=== PATIENT | male | born 1980 | race Caucasian/White ===

== ENCOUNTER 2022-12-31 10:02 | Outpatient (AMB) | payer OTHER, SELFPAY ==
--- NOTE | 2022-12-31 12:36 | AM.OFFWIN_ITS ---
Intake Vital Signs 12/31/22 12:45 12/31/22 13:42 12/31/22 13:42 12/31/22 13:42 Height 5 ft 4 in Weight 179 lb 6 oz BMI 30.8 BP 120/82 100/62 120/70 118/86 Blood Pressure Location Lt brachial Rt brachial Rt brachial Rt brachial Position Sitting Supine Sitting Standing Pulse 83 Pulse Source Pulse Oximeter Temp 98.5 F Temp Source Oral Pulse Oximetry (%) 97 Oxygen Delivery Method Room Air Intake Visit Reasons: EP ?Sinus Infection [phone] Intake Note: pt has been dizzy off and on for months but has had head pressure and pain and left ear pain for the last 3 days Patient Tobacco Use Status: Never used Tobacco Allergies escitalopram Adverse Reaction (Unknown, Verified 12/31/22 12:38) stomach upset milk Adverse Reaction (Unknown, Uncoded 12/31/22 12:38) stomach upset Medication List - Last Reconciled 12/31/22 by APPLE Villafana lactase (Lactaid Fast Act) 9,000 units PO QID PRN Do you need a note to return to daycare/school/sports/work: No HPI EP ?Sinus Infection [phone] HPI Details Patient is a 42-year-old male in for sick visit. Patient has a past medical history is significant for benign proximal positional vertigo. Patient reports that over the past year he has had bouts of dizziness which can last up to 3 days, denies nausea or vomiting. Patient has not tried any medications for relief, he lets the dizziness resolve on its own. Patient states that he notices dizzy spells most after changing positions and standing up. Will obtain EKG, will obtain orthostatic blood pressure, will perform David-Hallpike maneuver, and will draw labs CBC and basic metabolic panel. [facility] Social History Patient Tobacco Use Status: Never used Tobacco Review of Systems Const Reports headache(s) ENT Reports dizziness and Reports headache(s) Neuro Reports dizziness and Reports headache(s) Physical Exam Vital Signs: Last Vital Signs Temp 98.5 F 12/31/22 12:45 Pulse 83 12/31/22 12:45 BP 118/86 12/31/22 13:42 Pulse Ox 97 12/31/22 12:45 Oxygen Delivery Method Room Air 12/31/22 12:45 BMI result Body Mass Index 30.8 Const General: cooperative and no acute distress Orientation/consciousness: patient oriented x3 Limitations: no limitations HEENT Head: Yes normal to inspection and Yes normocephalic Ears: hearing grossly normal bilaterally and other (Fluid in redness visible and right ear canal) Face and sinus: Yes sinuses nontender Mouth: Normal oral and palatal mucosa present Throat: Yes posterior oropharynx normal and Yes tonsils normal Eyes General: appearance normal, both eyes and all related structures Neck Neck: Yes no lymphadenopathy Resp Effort & Inspection: normal respiratory effort Auscultation: clear to auscultation bilaterally Neuro Other: Patient is negative for in office orthostatic hypotension. General: patient oriented x3 and CN's II-XI intact bilaterally Cranial nerves: Yes CN's II-XII intact bilaterally Office Procedures EKG Details: Normal sinus rhythm 68 beats per minute 52021-[id number], Complete Assessment & Plan Assessment & Plan (1) BPPV (benign paroxysmal positional vertigo): Comment: patient's vital signs are stable, physical exam unremarkable. Recommended trying the Eleuterio maneuver at home, will also put in referral for ENT. also advised he can try the meclizine combined with Benadryl but advised not to drink alcohol, drive a vehicle or operate heavy machinery, work on electricity, etc. After he takes this combination of medications as it will make him tired. Code(s): H81.10 - Benign paroxysmal vertigo, unspecified ear Qualifiers: Laterality: bilateral Qualified Code(s): H81.13 - Benign paroxysmal vertigo, bilateral (2) Otitis media, right: Code(s): H66.91 - Otitis media, unspecified, right ear Qualifiers: Chronicity: acute Recurrence: non-recurrent Orders: Orders Complete Blood Count Auto Diff Today R42 - Dizziness and giddiness Basic Metabolic Panel Today R42 - Dizziness and giddiness AMB EKG-In Office Today R42 - Dizziness and giddiness Coding Level of Care Code Est Pt Level 3 (45944) Diagnoses Benign paroxysmal positional vertigo due to bilateral vestibular disorder H81.13 Laterality: bilateral Otitis media, right H66.91 Chronicity: acute Recurrence: non-recurrent CPT Codes EKG - CPT: 13689-Awtwpycbyzwtggtys, Complete ([id number])
[2022-12-31 12:45] VITALS: BP 120/82; PULSE 83; TEMP 36.9; O2SAT 97; BMI 30.8
[2022-12-31 13:42] VITALS: BP 100/62; BP 118/86; BP 120/70
== END 2022-12-31 14:11 | disposition home or self-care (01) ==
PROVIDERS: PCP Nurse Practitioner Family; Visit Provider Nurse Practitioner Primary Care
DX: R42 Dizziness and giddiness (principal)
CPT/HCPCS: 93000; 99213

== ENCOUNTER 2022-12-31 13:49 | Outpatient (REF) | payer OTHER, SELFPAY ==
[2022-12-31 16:04] LABS: MANUAL DIFF FLAG NO
[2022-12-31 16:15] LABS: Basophils Percent Auto 0.4 % (0-2); Eosinophils Absolute Auto 0.1 X10*3/uL (0.0-0.4); Eosinophils Percent Auto 1.2 % (0-4); Hematocrit 46.3 % (42.0-52.0); Hemoglobin 15.8 g/dl (14.0-18.0); Imm Gran Abs Auto 0.02 X10*3/uL (0.00-0.03); Imm Gran Pct Auto 0.3 % (0.0-0.4); Lymphocytes Absolute Auto 2.7 X10*3/uL (1.2-4.9); Lymphocytes Percent Auto 37.2 % (20-40); Mean Corpuscular HGB Conc 34.1 g/dl (31.0-36.0); Mean Corpuscular Hemoglobin 30.3 pg (27.0-33.0); Mean Corpuscular Volume 88.7 fL (80.0-98.0); Monocytes Absolute Auto 0.5 X10*3/uL (0.1-1.2); Monocytes Percent Auto 7.1 % (2-11); Neutrophils Absolute Auto 3.9 x10*3/uL (2.0-8.3); Neutrophils Percent Auto 53.8 % (45-73); Platelet Count 240 X10*3/uL (160-400); Red Blood Count 5.22 X10*6/uL (4.60-5.80); Red Cell Distribution Width 11.7 % (11.0-16.0); White Blood Count 7.2 X10*3/uL (4.8-10.8)
[2022-12-31 16:37] LABS: Anion Gap 13 (12-20); Blood Urea Nitrogen 9 mg/dL (9-16); Calcium 9.7 mg/dL (8.4-10.2); Carbon Dioxide 27 mmol/L (22-29); Chloride 105 mmol/L (96-108); Estimated Glomerular Filt Rate > 60; Glucose Random 92 mg/dL (60-115); Potassium 3.8 mmol/L (3.3-5.1); Sodium 141 mmol/L (135-145)
== END 2022-12-31 13:50 | disposition home or self-care (01) ==
LOC: HO.HMGCLDS 13:49
PROVIDERS: Visit Provider Nurse Practitioner Primary Care
DX: R42 Dizziness and giddiness (principal)
CPT/HCPCS: 36415; 80048; 85025

== ENCOUNTER 2023-02-17 09:32 | Outpatient (AMB) | payer OTHER, SELFPAY ==
--- NOTE | 2023-02-17 10:58 | AM.OFFWIN_ITS ---
Intake Vital Signs 02/17/23 11:04 Height 5 ft 4 in Weight 184 lb BMI 31.6 BP 120/70 Blood Pressure Location Lt brachial Position Sitting Pulse 88 Pulse Source Pulse Oximeter Temp 97.5 F Temp Source Temporal Artery Scan Pulse Oximetry (%) 99 Oxygen Delivery Method Room Air Intake Visit Reasons: EST/weak/ post covid [id number] Intake Note: Patient is here today for weak and covid symptoms Patient Tobacco Use Status: Never used Tobacco Allergies escitalopram Adverse Reaction (Unknown, Verified 02/17/23 11:10) stomach upset milk Adverse Reaction (Unknown, Uncoded 12/31/22 12:38) stomach upset Do you need a note to return to daycare/school/sports/work: Yes HPI HPI Comments History of Present Illness Details Jim presents to walk-in clinic today for sick visit. Patient reports he tested positive for covid 1 week ago, has been suffering with fatigue, headaches, bodyaches. Retested 2 days ago and was still positive. Today states he felt worse when he awoke, had nausea and vomited once. After vomiting he felt better. He reports urine this morning was on the darker side. Has been able to drink water without vomiting since he vomited. Patient went to work yesterday and worked a full 8 hours which made him more fatigued. Denies chest pain, palpitations, syncope. [facility] Social History Patient Tobacco Use Status: Never used Tobacco Review of Systems Const All systems reviewed & are unremarkable except as noted in HPI and below Physical Exam Vital Signs: Last Vital Signs Temp 97.5 F 02/17/23 11:04 Pulse 88 02/17/23 11:04 BP 120/70 02/17/23 11:04 Pulse Ox 99 02/17/23 11:04 Oxygen Delivery Method Room Air 02/17/23 11:04 BMI result Body Mass Index 31.6 General: awake, alert, oriented. Answers questions appropriately. Fully engaged in examination. Skin: warm, dry, intact HEENT: TMs intact bilaterally, no redness. Posterior pharynx without erythema or exudate. Sclera without icterus or injection. Cardiac: External chest normal in appearance. Respiratory: No cough, wheezing or stridor. LSCTAB. Abdomen: without gross distension. Neurological: Oriented to person, place, time and situation. Thought process intact. Ambulates with steady gait. Psychiatric: Appropriate mood and affect. Good judgment and insight. Assessment & Plan Assessment & Plan (1) COVID: Code(s): U07.1 - COVID-19 Plan Patient with known Covid illness, tested positive 1 week ago and again 2 days ago. Vital signs reviewed, stable. Patient encouraged to continue with conservative measures including rest, drink plenty of fluids, tylenol as needed for headaches/bodyaches. Work note provided. Follow up with pcp or in the clinic for any new or worsening symptoms. Go to ER for chest pain, syncope, palpitations, intractable vomiting. Coding Level of Care Code Est Pt Level 2 (09728) Diagnoses COVID U07.1
[2023-02-17 11:04] VITALS: BP 120/70; PULSE 88; TEMP 36.4; O2SAT 99; BMI 31.6
== END 2023-02-17 12:07 | disposition home or self-care (01) ==
PROVIDERS: PCP Nurse Practitioner Family; Visit Provider Registered Nurse Emergency
DX: U07.1 COVID-19 (principal)
CPT/HCPCS: 99212

== ENCOUNTER 2023-05-05 14:12 | Outpatient (AMB) | payer OTHER, SELFPAY ==
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
[2023-05-05 14:18] VITALS: BP 128/86; PULSE 88; O2SAT 98; BMI 30.9
== END 2023-05-05 16:03 | disposition home or self-care (01) ==
PROVIDERS: PCP Nurse Practitioner Primary Care; Visit Provider Nurse Practitioner Primary Care
DX: H61.23 Impacted cerumen, bilateral (principal)
CPT/HCPCS: 69209; 99213

== ENCOUNTER 2023-06-02 07:16 | Outpatient (REF) | payer OTHER, SELFPAY ==
--- NOTE | ~2023-06-02 | MR_ITS ---
EXAMINATION: MR BRAIN WITHOUT CONTRAST CLINICAL INFORMATION: Frequent and persistent headache COMPARISON: None available. TECHNIQUE: MRI of the brain was obtained using routine sequences without contrast. FINDINGS: Ventricles, sulci and cisterns are normal. No focal cerebral, brainstem or cerebellar lesions with abnormal signal can be seen. Diffusion weighted images show no abnormal regional decrease in diffusion. Normal flow voids of major intracerebral blood vessels are seen in the visualized portion. The pituitary gland is normal. Optic chiasm is not displaced. Cerebellar tonsils position is normal. Bilateral ethmoid sinuses show mild mucosal thickening. MR/MR head/brain wo con IMPRESSION: 1. Normal MRI scan of the brain. 2. No acute cerebral infarction is seen. 3. No evidence of space occupying mass lesion could be found. 4. No evidence of intracranial hemorrhage.
== END 2023-06-02 07:17 | disposition home or self-care (01) ==
LOC: HO.MRI 07:16
PROVIDERS: PCP Nurse Practitioner Primary Care; Visit Provider Nurse Practitioner Primary Care
DX: R51.9 Headache, unspecified (principal); G89.29 Other chronic pain
CPT/HCPCS: 70551

== ENCOUNTER 2023-08-04 10:55 | Outpatient (RCR) | payer OTHER, SELFPAY ==
[2023-08-04 11:02] VITALS: BP 132/92; PULSE 76; O2SAT 98
--- NOTE | 2023-08-04 11:55 | MHC.PT.EP ---
[facility] Office [place] Office [place] Office [address] Mary Schuler [address] [phone] F: [phone] F: [phone] F: [phone] F: [phone] Physical Therapy Plan of Care Date of Evaluation: 08/04/23 Date of Surgery: Diagnosis: This is a 43 yo male presenting to skilled PT with a script for BPPV. Assessment: This is a 43 yo male presenting to skilled PT with a script for BPPV. Patient has been having symptoms for over 2 years now indicated by his visits to the walk-in at [place]. He has been given meclizine, had a brain MRI, ear irrigation in office and referred to the ENT. He reports ongoing infrequent dizzy spells since then but has not had one for the last 8 months. Patient reports that when he got these symptoms it would happen when he went supine <> sit, rolling in bed and occasionally in standing. He did not fall but felt unsteady. He has had an increase in SIOMN's but also has a lot of stress going on at home. Examination shows - oculomotor tests with saccades, (-) VBI B, and WNL cervical AROM (except for R rotation which was tight). He was (-) for BPPV with brooke-hallpike B and B roll tests. Balance was also normal. S/S are no longer consistent with BPPV however he does report symptoms that were consistent with it in the past. I did educate him to call our office if symptoms return however as he appears to have self corrected he is not in need of skilled PT for this currently. He would benefit from skilled PT 2x/wk for 4wks if symptoms return in order to improve functional mobility and return to baseline. Frequency and Duration: The patient will be seen 2x/wk for 4wks Short Term Goals: hold PT Custodial Goals: (if symptoms return) I in HEP Negative in all 6 canals for dizziness and nystagmus Return to normal gait pattern without reports of LOB due to dizziness Treatment Plan: Modalities to reduce pain, spasms and effusion. Manual therapy to restore motion and function. Therapeutic exercise to improve strength and flexibility. Neuromuscular re-education for posture and balance. Therapeutic activities to return to functional activities of daily living. Electronically signed by: Kianna Delacruz PT Please sign and return to therapist. Thank you for your referral.
--- NOTE | 2023-09-03 08:53 | MHC.PT.DC ---
[facility] Office [place] Office [place] Office [address] Mary Schuler [address] [phone] F: [phone] F: [phone] F: [phone] F: [phone] Physical Therapy Discharge Report Diagnosis: This is a 43 yo male presenting to skilled PT with a script for BPPV. Date of Surgery: Date of Evaluation: 08/04/23 Date of Discharge: 09/03/23 Treatments to Date: 1 Cancellations to Date: 0 No Shows to Date: 0 Discharge Status: Discharge Summary: This is a 43 yo male presenting to skilled PT with a script for BPPV. Patient has been having symptoms for over 2 years now indicated by his visits to the walk-in at [facility]. He has been given meclizine, had a brain MRI, ear irrigation in office and referred to the ENT. He reports ongoing infrequent dizzy spells since then but has not had one for the last 8 months. Patient reports that when he got these symptoms it would happen when he went supine <> sit, rolling in bed and occasionally in standing. He did not fall but felt unsteady. He has had an increase in SIMON's but also has a lot of stress going on at home. Examination shows - oculomotor tests with saccades, (-) VBI B, and WNL cervical AROM (except for R rotation which was tight). He was (-) for BPPV with brooke-hallpike B and B roll tests. Balance was also normal. S/S are no longer consistent with BPPV however he does report symptoms that were consistent with it in the past. I did educate him to call our office if symptoms return however as he appears to have self corrected he is not in need of skilled PT for this currently. He would benefit from skilled PT 2x/wk for 4wks if symptoms return in order to improve functional mobility and return to baseline. Chart was closed after 30 days of not being in the facility. Electronically signed by: Kianna Delacruz, PT Please sign and return to therapist. Thank you for your referral.
== END 2023-09-03 08:53 | disposition home or self-care (01) ==
LOC: HO.PTCHIC 10:55
PROVIDERS: PCP Nurse Practitioner Primary Care; Visit Provider Nurse Practitioner Primary Care
DX: H81.10 Benign paroxysmal vertigo, unspecified ear (principal)
CPT/HCPCS: 97110; 97162

== ENCOUNTER 2023-08-27 13:12 | Outpatient (AMB) | payer OTHER, SELFPAY ==
--- NOTE | 2023-08-27 13:16 | A.OFFVIS_ITS ---
Vital Signs 08/27/23 13:25 Height 5 ft 4 in Weight 184 lb BMI 31.6 BP 130/72 Blood Pressure Location Rt brachial Position Sitting Pulse 76 Pulse Source Pulse Oximeter Pulse Oximetry (%) 97 Oxygen Delivery Method Room Air Intake Visit Reasons: I-[employer]: Sleep Apnea-LVM Intake Note: Patient presents for sleep apnea. Needs new CPAP machine and maybe a new study. Having headaches almost every day. Allergies escitalopram Adverse Reaction (Unknown, Verified 09/09/23 04:36) stomach upset milk Adverse Reaction (Unknown, Uncoded 09/09/23 04:36) stomach upset Medication List - Last Reconciled 08/27/23 by APPLE Gee No Known Home Meds HPI Comments Details: 43-yr-old male presents for new in-person patient visit for sleep consultation. Patient reports that he has a history of sleep apnea and has used CPAP for many years. He initially underwent a sleep study, as he was having terrible headaches. He is using his CPAP nightly, which helps with his snoring, sleep, and headaches. However, he states his respiratory company told him that his machine has reached the end of his life. He also notes that he is need of new PAP supplies as well. Sleep questionnaire: Have you ever been diagnosed with a sleep disorder? yes Have you ever had a sleep study in the past? yes Have you ever been treated for a sleep disorder? yes Do you take medications for a sleep disorder? no Do you have difficulty initiating sleep? yes Do you have difficulty maintaining sleep? no Do you wake up tired? yes Do you have daytime tiredness or fatigue? yes Do you easily fall asleep when inactive? yes Do you snore? yes Do you wake up gasping at night? no Do you have episodes of apneas? yes If yes, are they witnessed? yes Do you have episodes of nocturnal chest pain or dyspnea? no Do you have bruxism? Yes. If yes, do you wear a mouth guard when sleeping? just recently Do you have headaches upon awakening? yes. holocranial misery a/w photophobia, dizziness and nausea- when more severe, GI upset. Do you wake up with dry mouth or throat? yes- constantly thirsty. drinks water, but all some liqid IV Do you have GERD? in the past- improved w/ diet changes. Do you have nocturia? no Do you have nocturnal leg cramps? no Do you have symptoms of restless legs? Yes, and has Urge to move, Restlessness. Just occasionally. Starts at bedtime. Do you act out your dreams? no Do you have sleep paralysis? no Do you have drop attacks? no Do you ever have hypnogenic hallucinations? no Hypersomnolence questionnaire: Have you ever had episodes of sudden weakness? no Have you ever had episodes of sudden weakness associated with strong emotions? no Sleep hygiene questionnaire: What is your usual sleep routine? Usual bedtime is at 10:30 pm; Usual wake-up time is at 5:30am. Do you take naps? cannot nap- d/t busy lifestyle Is your sleep environment cool, dark, and quiet? not as quiet as he would like- his uses a fan. Do you exercise? very active. occasional exercises at home. no structured exercise at this time. Do you take caffeine or other stimulants? 1 cup of coffee Do you use electronics in bed? Some phone use. What is your work schedule? 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 [facility] Surgical History Hx of vasectomy Family History Father Hypertension Substance use disorder Mental health disorder Mother Stroke Hypertension Social History Housing: House Alcohol intake: current Comment: Ocassionally Patient Tobacco Use Status: Never used Tobacco e-Cigarette/Vaping Use: Never Used Advance Directives: No Advance Directives Information Provided: Yes Do you have a plan to hurt others: No Plan Current occupational status: employed Cognitive needs: No Hearing needs: No Vision needs: Yes Physical Exam Vital Signs: Last Vital Signs Pulse 76 08/27/23 13:25 BP 130/72 08/27/23 13:25 Pulse Ox 97 08/27/23 13:25 Oxygen Delivery Method Room Air 08/27/23 13:25 BMI result Body Mass Index 31.6 Const General: cooperative and no acute distress Orientation/consciousness: patient oriented x3 Resp Effort & Inspection: normal respiratory effort and able to speak in complete sentences Cardio Rate: regular rate Rhythm: regular rhythm Neuro General: patient oriented x3 Cognition (Neuro): normal cognition Psych Appearance: grossly normal Mental Status: mental status grossly normal Speech and movement: Normal speech and movement present Affect: normal affect Attitude: cooperative Telehealth Telehealth Telehealth Platform: [employer] Location of provider rendering services: practice address Location of patient: address on file Patient Identification confirmed using: Name, : Yes Telehealth method: video Patient verbally consented to treatment: Yes Patient verbally consented to billing insurance company: Yes Patient informed of any privacy concerns related to visit: Yes Assessment & Plan Assessment & Plan (1) Sleep apnea: Code(s): G47.30 - Sleep apnea, unspecified Category: Medical Qualifiers: Sleep apnea type: unspecified type Qualified Code(s): G47.30 - Sleep apnea, unspecified (2) Excessive daytime sleepiness: Code(s): G47.19 - Other hypersomnia Category: Medical (3) Snoring: Code(s): R06.83 - Snoring Category: Medical (4) Chronic headache: Code(s): R51.9 - Headache, unspecified; G89.29 - Other chronic pain Category: Medical Qualifiers: Headache type: unspecified Intractability: not intractable Qualified Code(s): R51.9 - Headache, unspecified; G89.29 - Other chronic pain Plan Will see if pt can receive new PAP supplies and CPAP from [facility]. If not, will refer pt to alternate home care company. Pt advised to undergo HST to assess status of his sleep apnea. Information shared on non-pharmacologic tx's for migraine headache. If headaches do not improve after receiving new PAP supplies and PAP device, will initiate migraine tx. Follow-up upon review of above and in clinic in 6 months or sooner. Addendum: Rec'd previous PAP order information from [facility]- APAP 6-16 cmH2O. However, we still do not have previous sleep study report, will pursue f/u HST as above. Orders: Orders RT home sleep study 08/27/23 G47.30 - Sleep apnea, unspecified, G47.19 - Other hypersomnia, R06.83 - Snoring Coding Level of Care Code New Pt Level 4 (30895) Diagnoses Sleep apnea, unspecified type G47.30 Sleep apnea type: unspecified type Excessive daytime sleepiness G47.19 Snoring R06.83 Chronic nonintractable headache, unspecified headache type R51.9; G89.29 Headache type: unspecified Intractability: not intractable [place] Sleepiness Scale Questions Sitting and reading: high chance of dozing Watching TV: high chance of dozing Sitting inactive in a theater, movie etc.: would never doze As a passenger in a car for an hour without break: would never doze Lying down in the afternoon when circumstances permit: high chance of dozing Sitting and talking to someone: would never doze Sitting quietly after lunch without alcohol: high chance of dozing In a car, while stopped for a few minutes in the traffic: would never doze ESS < 10: normal, ESS > 12: pathologic: 12
[2023-08-27 13:25] VITALS: BP 130/72; PULSE 76; O2SAT 97; BMI 31.6
== END 2023-08-27 14:23 | disposition home or self-care (01) ==
PROVIDERS: Visit Provider Nurse Practitioner Family
DX: G47.30 Sleep apnea, unspecified (principal); G47.19 Other hypersomnia; R06.83 Snoring; R51.9 Headache, unspecified; G89.29 Other chronic pain
CPT/HCPCS: 99204

== ENCOUNTER → 2023-08-27 13:12 | Outpatient (BNVA) | payer OTHER, SELFPAY | PROVIDERS: Visit Provider Nurse Practitioner Family ==

== ENCOUNTER 2023-09-09 03:58 | Emergency (ER) | payer OTHER, SELFPAY ==
--- NOTE | ~2023-09-09 | XR_ITS ---
EXAMINATION: XR CHEST CLINICAL INFORMATION: Shortness of breath COMPARISON: Chest x-ray on 02/14/2010 TECHNIQUE: Frontal view of the chest was obtained. FINDINGS: vascularity. LUNGS: Lungs are clear. No pneumothorax is seen. BONES: Bony skeleton is intact. XR/XR chest 1V IMPRESSION: Unchanged Normal chest x-ray.
[2023-09-09 04:32] VITALS: BP 136/105; PULSE 68; RESP 16; TEMP 36.9; O2SAT 98; BMI 30.1
[2023-09-09 06:42] VITALS: BP 132/91; PULSE 64; RESP 16; TEMP 36.4; O2SAT 97
--- NOTE | 2023-09-09 07:16 | ED_ITS ---
HPI - Skin/Abscess/Foreign Bdy General Chief complaint: Skin/Abscess/Foreign Body Stated complaint: Poison jolene? Time Seen by Provider: 09/09/23 06:42 Source: patient Mode of arrival: ambulatory Limitations: no limitations History of Present Illness ED Provider: Juma LEYVA HPI narrative: This is a 43-year-old male history of BPPV, hypertension, anxiety presenting to the emergency department with complaints of itchy rash throughout body status post gardening on Friday, he reports he has been applying calamine lotion and taking Benadryl with little to no relief. Additionally, patient reports he woke up this morning at approximately 03:00 with shortness of breath, fatigue, malaise, muscle aches and pains, he reports this has never happened to him before. This made him nervous so he decided to come in for evaluation. Patient denies chest pain, fevers, chills, nausea, vomiting, abdominal pain, headache, vision changes, weakness. Denies insect bites. Denies smoking history, recent travel, not on steroids or hormone replacement therapy. Related Data Previous Rx's ?Medication ?Instructions ?Recorded sumatriptan succinate 100 mg tablet 50 - 100 mg (0.5 - 1 x 100 mg) PO 08/29/23 .COMPLEX PRN migraine headache 30 days #12 tabs prednisone 20 mg tablet 40 mg (2 x 20 mg) PO DAILY 5 days 09/09/23 #10 tabs Allergies Allergy/AdvReac Type Severity Reaction Status Date / Time escitalopram AdvReac Unknown stomach Verified 09/09/23 04:36 upset milk AdvReac Unknown stomach Uncoded 09/09/23 04:36 upset Review of Systems 2 Review of Systems: Yes all other systems are reviewed and are negative [facility] Past Medical History Attestation statement: The following information was validated with the patient. Source: old records reviewed and nursing notes reviewed Surgical History Hx of vasectomy Family History Family History Father Hypertension Substance use disorder Mental health disorder Mother Stroke Hypertension Social History Social History Housing: House Alcohol intake: current Comment: Ocassionally Patient Tobacco Use Status: Never used Tobacco e-Cigarette/Vaping Use: Never Used Advance Directives: No Advance Directives Information Provided: Yes Do you have a plan to hurt others: No Plan Current occupational status: employed Cognitive needs: No Hearing needs: No Vision needs: Yes Physical Exam 2 Vital Signs: Vital Signs: Last Vital Signs Temp 97.5 F 09/09/23 06:42 Pulse 64 09/09/23 06:42 Resp 16 09/09/23 06:42 BP 132/91 H 09/09/23 06:42 Pulse Ox 97 09/09/23 06:42 O2 Del Method Room Air 09/09/23 06:42 BMI result Body Mass Index 30.1 vss Appearance: Alert.? Oriented X3.? No acute distress.? Head: Normocephalic, atraumatic, no step-offs or deformities Eyes: Pupils equal, round and reactive to light.? Neck: Normal inspection.? Neck supple.? CVS: Normal heart rate and rhythm.? Pulses normal.? Respiratory: No respiratory distress.? Breath sounds normal.? Abdomen: Soft and nontender.? Skin: Skin warm and dry.? Normal skin color.? Normal skin turgor.?+ sporadic patches that are dry, red, raised, itchy throughout upper extremities, lower extremities, trunk a sparing palms, soles, mouth. Extremities: No lower extremity edema.? No calf ttp. 5/5 strength to bilateral upper and lower extremities Neuro: Oriented X 3.? No motor deficit.? No sensory deficit. CN 2-12 intact Course Reevaluation(s) Reevaluation #1: CBC unremarkable. Chemistry no acute findings requiring intervention. Negative troponin, EKG pending. D-dimer negative. Chest x-ray is normal. Flu, COVID, RSV negative. As long as EKG is normal patient to be discharged home with PCP follow-up. Will discharge him on prednisone for rash. Educated patient on diagnosis and treatment plan, answered all question, patient verbalizes understanding. At this time patient will be discharged home, advised to return with new or worsening symptoms. Educated on worrisome signs and symptoms and when to return. At this time I feel comfortable discharge home. Time: 08:14 Medical Decision Making Medical Decision Making MDM Narrative: 43 yo m presents w/ rash throughout body since Friday. Also awoke with sob this AM PE sporadic patches that are dry, red, raised, itchy throughout upper extremities, lower extremities, trunk a sparing palms, soles, mouth. Breath sounds clear. Regular rate and rhythm. Abdomen soft nontender nondistended. Neurological assessment nonfocal History and physical exam concerning for possible plant contact dermatitis versus irritant dermatitis versus allergic reaction. Unlikely sjs, ten, anaphylaxis, necrotizing infection, syphilis, [id number]. Shortness of breath likely viral, unlikely PE, ACS, dissection, acute respiratory distress. Plan labs, viral swabs Differential Diagnosis Differential Diagnoses: The differential diagnosis associated with the presentation includes History and physical exam concerning for possible plant contact dermatitis versus irritant dermatitis versus allergic reaction. Unlikely sjs, ten, anaphylaxis, necrotizing infection, syphilis, [id number]. Shortness of breath likely viral, unlikely PE, ACS, dissection, acute respiratory distress. Admission/Observation Consideration of admission/observation: Escalation of care including admission/observation considered Possible Lab Data MDM Lab Attestation statement: I reviewed the patient's lab results. 09/09/23 07:24 09/09/23 07:24 Labs: Lab Results 09/09/23 Range/Units 07:24 WBC 8.2 (4.8-10.8) X10*3/uL RBC 5.41 (4.60-5.80) X10*6/uL Hgb 16.4 (14.0-18.0) g/dl Hct 47.7 (42.0-52.0) % MCV 88.2 (80.0-98.0) fL MCH 30.3 (27.0-33.0) pg MCHC 34.4 (31.0-36.0) g/dl RDW 12.4 (11.0-16.0) % Plt Count 240 (160-400) X10*3/uL MPV 11.0 (9.4-12.4) fL Immature Gran % (Auto) 0.2 (0.0-0.4) % Neut % (Auto) 65.9 (45-73) % Lymph % (Auto) 24.1 (20-40) % [place] % (Auto) 7.3 (2-11) % Eos % (Auto) 2.1 (0-4) % Baso % (Auto) 0.4 (0-2) % Lymph # (Auto) 2.0 (1.2-4.9) X10*3/uL [place] # (Auto) 0.6 (0.1-1.2) X10*3/uL Eos # (Auto) 0.2 (0.0-0.4) X10*3/uL Baso # (Auto) 0.0 (0.0-0.2) X10*3/uL Abs Immat Gran (auto) 0.02 (0.00-0.03) X10*3/uL Absolute Neuts (auto) 5.4 (2.0-8.3) x10*3/uL Absolute Nucleated RBC 0.000 (0.0-0.012) X10*3/uL Nucleated RBC % (auto) 0.0 (0.0-0.2) /100WBC D-Dimer High Sensitivty < 150 NG/ML Sodium 141 (135-145) mmol/L Potassium 3.5 (3.3-5.1) mmol/L Chloride 105 (96-108) mmol/L Carbon Dioxide 29 (22-29) mmol/L Anion Gap 11 L (12-20) BUN 7 L (9-16) mg/dL Creatinine 0.97 (0.5-1.4) mg/dL Estim Creat Clear Calc 96.8 Estimated GFR > 60 Random Glucose 126 H (60-115) mg/dL Calcium 9.6 (8.4-10.2) mg/dL Total Bilirubin 1.0 (0.0-1.0) mg/dL AST 30 (5-37) U/L ALT 43 H (0-40) U/L Alkaline Phosphatase 56 (39-117) U/L Troponin I High Sens < 2.7 (<3.5-35.0) ng/L Total Protein 7.3 (6.5-8.0) g/dL Albumin 4.6 (3.5-5.0) g/dL Influenza Type A (PCR) NEGATIVE (Negative) Influenza Type B (PCR) NEGATIVE (Negative) RSV RNA Qual (PCR) NEGATIVE (Negative) SARS-CoV-2 RNA (RT-PCR) NEGATIVE (Negative) Independent Interpretation I performed an independent interpretation of an: EKG (NSR no signs of ischemia ) and Plain X-Ray (XR/XR chest 1V IMPRESSION: Unchanged Normal chest x-ray.) Radiology Impression Discussion of test interpretation with radiology: I have reviewed the radiologist's reading. External Record Review External record reviewed: Outpatient record and Prior outpatient labs Critical Care Time Critical Care Time Critical Care Time: No Discharge Plan Discharge Clinical Impression: Dermatitis due to plant, Shortness of breath Patient Disposition: Home, Self-Care Instructions: Contact Dermatitis (ED), Cold Compress or Soak (ED), Shortness of Breath (ED) Additional Instructions: Take your medications as prescribed. If you were prescribed antibiotics today, it is important that you take your medication to their entirety, do not skip any doses, do not finish them early. Follow-up with your primary care provider this week. Return to the emergency department with new or worsening symptoms. Such as fevers, chills, chest pain, shortness of breath, nausea, vomiting, dizziness, headache, vision changes, lethargy In case of emergency call 911 Prescriptions: New prednisone 20 mg tablet 40 mg PO DAILY 5 Days Qty: 10 0RF No Action sumatriptan succinate 100 mg tablet 50 - 100 mg PO .COMPLEX PRN (Reason: migraine headache) 30 Days Qty: 12 6RF Rx Instructions: 50 - 100 mg orally at onset of headache, may repeat in 2 hrs PRN; max 2 tabs per day or 4 tabs/week (may take with Ibuprofen) Referrals: Diaz Naqvi FNP [Primary Care Provider] - 2 days Print Language: [place]
[2023-09-09 07:28] LABS: MANUAL DIFF FLAG NO
[2023-09-09 07:31] LABS: Basophils Percent Auto 0.4 % (0-2); Eosinophils Absolute Auto 0.2 X10*3/uL (0.0-0.4); Eosinophils Percent Auto 2.1 % (0-4); Hematocrit 47.7 % (42.0-52.0); Hemoglobin 16.4 g/dl (14.0-18.0); Imm Gran Abs Auto 0.02 X10*3/uL (0.00-0.03); Imm Gran Pct Auto 0.2 % (0.0-0.4); Lymphocytes Percent Auto 24.1 % (20-40); Mean Corpuscular HGB Conc 34.4 g/dl (31.0-36.0); Mean Corpuscular Hemoglobin 30.3 pg (27.0-33.0); Mean Corpuscular Volume 88.2 fL (80.0-98.0); Monocytes Absolute Auto 0.6 X10*3/uL (0.1-1.2); Monocytes Percent Auto 7.3 % (2-11); Neutrophils Absolute Auto 5.4 x10*3/uL (2.0-8.3); Neutrophils Percent Auto 65.9 % (45-73); Platelet Count 240 X10*3/uL (160-400); Red Blood Count 5.41 X10*6/uL (4.60-5.80); Red Cell Distribution Width 12.4 % (11.0-16.0); White Blood Count 8.2 X10*3/uL (4.8-10.8)
[2023-09-09 07:48] LABS: Alanine Aminotransferase 43 U/L (0-40); Albumin Level 4.6 g/dL (3.5-5.0); Alkaline Phosphatase 56 U/L (39-117); Anion Gap 11 (12-20); Aspartate Amino Transferase 30 U/L (5-37); Blood Urea Nitrogen 7 mg/dL (9-16); Calcium 9.6 mg/dL (8.4-10.2); Carbon Dioxide 29 mmol/L (22-29); Chloride 105 mmol/L (96-108); Creatinine Clr Calc Pharmacy 96.8; Estimated Glomerular Filt Rate > 60; Glucose Random 126 mg/dL (60-115); Potassium 3.5 mmol/L (3.3-5.1); Sodium 141 mmol/L (135-145); Total Protein 7.3 g/dL (6.5-8.0)
[2023-09-09 07:50] LABS: D Dimer High Sensitivity < 150 NG/ML
[2023-09-09 07:56] LABS: Troponin-I High Sensitivity < 2.7 ng/L (<3.5-35.0)
[2023-09-09 08:09] LABS: Influenza A PCR NEGATIVE (Negative); Influenza B PCR NEGATIVE (Negative); Resp Syncy Virus RNA Qual PCR NEGATIVE (Negative); SARS COV2 PCR INHOUSE NEGATIVE (Negative)
--- NOTE | 2023-09-09 08:12 | ECG_ITS ---
Test Reason : SOB Blood Pressure : / mmHG Vent. Rate : 062 BPM Atrial Rate : 062 BPM P-R Int : 158 ms QRS Dur : 070 ms QT Int : 374 ms P-R-T Axes : 044 -04 008 degrees QTc Int : 379 ms Normal sinus rhythm Normal ECG No previous ECGs available Referred By: Allie Beach Electronically Signed By:Vincent Alvarez
[2023-09-09 08:38] VITALS: BP 133/94; PULSE 72; RESP 16; TEMP 36.8; O2SAT 97
== END 2023-09-09 08:38 | disposition home or self-care (01) ==
PROVIDERS: Physician Assistant; Emergency Provider Emergency Medicine; PCP Nurse Practitioner Primary Care
DX: L25.5 Unspecified contact dermatitis due to plants, except food (principal); R06.02 Shortness of breath; R21 Rash and other nonspecific skin eruption; Z03.818 Encounter for observation for suspected exposure to other biological agents ruled out
CPT/HCPCS: 0241U; 71045; 80053; 84484; 85025; 85379; 93005; 99283; 99284

== ENCOUNTER → 2023-09-09 08:12 | Outpatient (BNV) | payer OTHER, SELFPAY | PROVIDERS: Emergency Provider Emergency Medicine; PCP Nurse Practitioner Primary Care; Visit Provider Internal Medicine Cardiovascular Disease | DX: R06.02 Shortness of breath (principal) | CPT/HCPCS: 93010 ==

== ENCOUNTER → 2023-11-11 12:40 | Outpatient (REF) | payer OTHER, SELFPAY | LOC: HO.SL 12:40 | PROVIDERS: Visit Provider Nurse Practitioner Family | DX: G47.30 Sleep apnea, unspecified (principal); G47.19 Other hypersomnia; R06.83 Snoring | CPT/HCPCS: 95806 ==

== ENCOUNTER → 2023-11-11 13:00 | Outpatient (BNV) | payer OTHER, SELFPAY | PROVIDERS: Visit Provider Psychiatry & Neurology Neurology | DX: G47.33 Obstructive sleep apnea (adult) (pediatric) (principal) | CPT/HCPCS: 95806 ==

== ENCOUNTER → 2023-12-23 20:30 | Outpatient (REF) | payer OTHER, SELFPAY | LOC: HO.SL 20:30 | PROVIDERS: Visit Provider Nurse Practitioner Family | DX: G47.33 Obstructive sleep apnea (adult) (pediatric) (principal) | CPT/HCPCS: 95811 ==

== ENCOUNTER → 2023-12-23 22:16 | Outpatient (BNV) | payer OTHER, SELFPAY | PROVIDERS: Visit Provider Psychiatry & Neurology Neurology | DX: G47.33 Obstructive sleep apnea (adult) (pediatric) (principal) | CPT/HCPCS: 95811 ==

== ENCOUNTER 2024-03-25 12:43 | Outpatient (AMB) | payer OTHER, SELFPAY ==
[2024-03-25 12:55] VITALS: BP 126/88; PULSE 85; O2SAT 96; BMI 30.8
--- NOTE | 2024-03-25 12:55 | A.OFFVIS_ITS ---
Vital Signs 03/25/24 12:55 Height 5 ft 5 in Weight 185 lb BMI 30.8 BP 126/88 Blood Pressure Location Rt brachial Position Sitting Pulse 85 Pulse Source Pulse Oximeter Pulse Oximetry (%) 96 Oxygen Delivery Method Room Air Intake Visit Reasons: 6 Month F/U Allergies escitalopram Adverse Reaction (Unknown, Verified 03/25/24 12:58) stomach upset milk Adverse Reaction (Unknown, Uncoded 09/09/23 04:36) stomach upset Medication List - Last Reconciled 03/25/24 by APPLE Gee sumatriptan succinate 50 - 100 mg orally at onset of headache, may repeat in 2 hrs PRN; max 2 tabs per day or 4 tabs/week (may take with Ibuprofen) 30 days HPI Comments Details: 43-yr-old male presents for visit for severe MERCEDEZ. 11/11/2023 HST showed severe obstructive sleep apnea and nocturnal hypoxemia. AHI 57.4/hour, O2 sandy 76%, SpO2 under 90% for 56 minutes (9.8% of study time), SpO2 under 88% for 15 minutes of study time, average heart rate 62 beats per minute, heart rate range 38-103 beats per minute, snoring present for 7.6% of study time. Patient then underwent follow-up in-lab PAP titration study on 12/23/2023, which showed best optimization breathing and oxygenation and CPAP 13 cm H2O. During the study, patient had a periodic limb movement of sleep (PLMS) index of 17.7/hour and a PLMS arousal index of 7.7/hour. Since, patient has received a new CPAP machine. Overall he feels that this machine is working better. He has asked for a larger facemask, as he has been experiencing dry mouth when using his CPAP. He thinks this is due to now using a mouth guard that his dentist prescribed, which is preventing him from fully closing his mouth while he sleeps. He states he has never had alternate his CPAP use before. He states his headaches have been well controlled. He did purchase a pair of FL-41 blue light blocking glasses, which he applies at onset of photophobia/headache, in his very helpful. He has not needed to use p.r.n. sumatriptan. He denies typical restlessness, states he is usually a pretty calm person. Generally he does like to sleep with a lot of blankets on, any notes that during the sleep study he had just thin blink on. He denies frequent nocturnal leg cramps. He has been noticing left foot itchiness at rest. He states the skin of the foot looks clear. He tried OTC antifungal tx, but this did not help. He may have some left knee pain at times. 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 08/27/2023, Initial HPI: Patient reports that he has a history of sleep apnea and has used CPAP for many years. He initially underwent a sleep study, as he was having terrible headaches. He is using his CPAP nightly, which helps with his snoring, sleep, and headaches. However, he states his respiratory company told him that his machine has reached the end of his life. He also notes that he is need of new PAP supplies as well. Sleep questionnaire: Have you ever been diagnosed with a sleep disorder? yes Have you ever had a sleep study in the past? yes Have you ever been treated for a sleep disorder? yes Do you take medications for a sleep disorder? no Do you have difficulty initiating sleep? yes Do you have difficulty maintaining sleep? no Do you wake up tired? yes Do you have daytime tiredness or fatigue? yes Do you easily fall asleep when inactive? yes Do you snore? yes Do you wake up gasping at night? no Do you have episodes of apneas? yes If yes, are they witnessed? yes Do you have episodes of nocturnal chest pain or dyspnea? no Do you have bruxism? Yes. If yes, do you wear a mouth guard when sleeping? just recently Do you have headaches upon awakening? yes. holocranial misery a/w photophobia, dizziness and nausea- when more severe, GI upset. Do you wake up with dry mouth or throat? yes- constantly thirsty. drinks water, but all some liqid IV Do you have GERD? in the past- improved w/ diet changes. Do you have nocturia? no Do you have nocturnal leg cramps? no Do you have symptoms of restless legs? Yes, and has Urge to move, Restlessness. Just occasionally. Starts at bedtime. Do you act out your dreams? no Do you have sleep paralysis? no Do you have drop attacks? no Do you ever have hypnogenic hallucinations? no Hypersomnolence questionnaire: Have you ever had episodes of sudden weakness? no Have you ever had episodes of sudden weakness associated with strong emotions? no Sleep hygiene questionnaire: What is your usual sleep routine? Usual bedtime is at 10:30 pm; Usual wake-up time is at 5:30am. Do you take naps? cannot nap- d/t busy lifestyle Is your sleep environment cool, dark, and quiet? not as quiet as he would like- his uses a fan. Do you exercise? very active. occasional exercises at home. no structured exercise at this time. Do you take caffeine or other stimulants? 1 cup of coffee Do you use electronics in bed? Some phone use. What is your work schedule? 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 PFSH Surgical History Hx of vasectomy Family History Father Hypertension Substance use disorder Mental health disorder Mother Stroke Hypertension Social History Housing: House Alcohol intake: current Comment: Ocassionally Patient Tobacco Use Status: Never used Tobacco e-Cigarette/Vaping Use: Never Used Current occupational status: employed Cognitive needs: No Hearing needs: No Vision needs: Yes Physical Exam Vital Signs: Last Vital Signs Pulse 85 03/25/24 12:55 BP 126/88 03/25/24 12:55 Pulse Ox 96 03/25/24 12:55 Oxygen Delivery Method Room Air 03/25/24 12:55 BMI result Body Mass Index 30.8 Const General: cooperative and no acute distress Orientation/consciousness: patient oriented x3 Resp Effort & Inspection: normal respiratory effort and able to speak in complete sentences Cardio Rate: regular rate Rhythm: regular rhythm Neuro Other: Bilateral lower extremity MS 5/5 Bilateral patellar DTR 2+ BLE light touch sensation intact General: patient oriented x3 Cognition (Neuro): normal cognition Psych Appearance: grossly normal Mental Status: mental status grossly normal Speech and movement: Normal speech and movement present Affect: normal affect Attitude: cooperative Assessment & Plan Assessment & Plan (1) Severe obstructive sleep apnea: Code(s): G47.33 - Obstructive sleep apnea (adult) (pediatric) Category: Medical (2) Paresthesia of left foot: Code(s): R20.2 - Paresthesia of skin Category: Medical (3) Chronic headache: Code(s): R51.9 - Headache, unspecified; G89.29 - Other chronic pain Category: Medical Qualifiers: Headache type: unspecified Intractability: not intractable Qualified Code(s): R51.9 - Headache, unspecified; G89.29 - Other chronic pain (4) Periodic limb movements of sleep: Code(s): G47.61 - Periodic limb movement disorder Category: Medical Plan For MERCEDEZ: Reviewed recent HST in follow-up in-lab PSG with PAP titration: Severe obstructive sleep apnea with nocturnal hypoxemia, with PAP titration study showing optimization of breathing and oxygenation level CPAP 13 cm H2O. In-lab PAP titration study does show PLMS with PLMS arousal index of 7/hour, while patient was on CPAP which was effectively treating his sleep apnea and nocturnal hypoxemia. Continue CPAP 13 cm H2O nightly for at least 4 hours. Continue to use mouth guard for dentist. Trial OTC XyliMelts 1-2 tabs applied to a gun p.r.n. to prevent dry mouth Clean CPAP machine and supplies routinely. Change CPAP supplies routinely. Use distilled water in CPAP water reservoir. Pt to contact us or respiratory company with any questions or concerns. For left foot itchiness without other associated skin symptoms: We will check labs for common etiologies of paresthesias. Possibly this could be related to PLMS, maybe a mild case of RLS as this is only occurring at rest. Discussed that if lab work was normal, we could consider trying low-dose gabapentin, however patient is hesitant to try new medications. Thus, future considerations include podiatry referral, LLE imaging, and/or EMG/NCS Information shared on nonpharmacological treatments of PLMS/RLS. For migraine: Continue to use FL-41 blue light blocking glasses p.r.n. Continue sumatriptan p.r.n. Follow-up upon review of above and in clinic in 6 months or sooner. Orders: Orders Vitamin D 25-OH (D2 and D3) Today R20.2 - Paresthesia of skin, R53.83 - Other fatigue Comprehensive Met. Panel Today R20.2 - Paresthesia of skin, R53.83 - Other fatigue Hemoglobin A1c Today R20.2 - Paresthesia of skin, R53.83 - Other fatigue Ferritin Today R20.2 - Paresthesia of skin, R53.83 - Other fatigue Vitamin B12 and Folate Today R20.2 - Paresthesia of skin, R53.83 - Other fatigue TSH reflex Free T4 Today R20.2 - Paresthesia of skin, R53.83 - Other fatigue Vitamin B1 Today R20.2 - Paresthesia of skin, R53.83 - Other fatigue Vitamin B6 Today R20.2 - Paresthesia of skin, R53.83 - Other fatigue Complete Blood Count Auto Diff Today R20.2 - Paresthesia of skin, R53.83 - Other fatigue Lipid Panel with Reflex Today R20.2 - Paresthesia of skin, R53.83 - Other fatigue IRON PROFILE Today R20.2 - Paresthesia of skin, R53.83 - Other fatigue Medications: Discontinued prednisone Discontinued Reason: Doctor's Order 40 mg (2 x 20 mg) PO DAILY 5 days 10 tabs 0RF Coding Level of Care Code Est Pt Level 4 (58979) Diagnoses Severe obstructive sleep apnea G47.33 Paresthesia of left foot R20.2 Chronic nonintractable headache, unspecified headache type R51.9; G89.29 Headache type: unspecified Intractability: not intractable Periodic limb movements of sleep G47.61
== END 2024-03-25 13:59 | disposition home or self-care (01) ==
PROVIDERS: Visit Provider Nurse Practitioner Family
DX: G47.33 Obstructive sleep apnea (adult) (pediatric) (principal); R20.2 Paresthesia of skin; R51.9 Headache, unspecified; G89.29 Other chronic pain; G47.61 Periodic limb movement disorder
CPT/HCPCS: 99214

== ENCOUNTER 2024-05-24 12:12 | Outpatient (REF) | payer OTHER, SELFPAY ==
[2024-05-24 17:22] LABS: Influenza A PCR NEGATIVE (Negative); Influenza B PCR NEGATIVE (Negative); Resp Syncy Virus RNA Qual PCR POSITIVE (Negative); SARS COV2 PCR INHOUSE NEGATIVE (Negative)
== END 2024-05-24 12:13 | disposition home or self-care (01) ==
LOC: HO.LAB 12:12
PROVIDERS: Visit Provider Nurse Practitioner Family
DX: J06.9 Acute upper respiratory infection, unspecified (principal)
CPT/HCPCS: 0241U

== ENCOUNTER 2024-05-24 12:12 | Outpatient (AMB) | payer OTHER, SELFPAY ==
--- NOTE | 2024-05-24 14:07 | MHC.OFFWIV ---
Intake Vital Signs 05/24/24 14:09 Weight 179 lb BP 140/80 H Blood Pressure Location Lt brachial Pulse 106 H Pulse Source Pulse Oximeter Temp 100.1 F Temp Source Oral Pulse Oximetry (%) 98 Oxygen Delivery Method Room Air Intake Visit Reasons: EP-headaches, body ache, sinus Intake Note: Patient here for headaches, body aches and sinus pressure that has been present sine Friday. Patient Tobacco Use Status: Never used Tobacco Allergies escitalopram Adverse Reaction (Unknown, Verified 05/24/24 14:09) stomach upset milk Adverse Reaction (Unknown, Uncoded 05/24/24 14:09) stomach upset Do you need a note to return to daycare/school/sports/work: Yes HPI HPI Comments History of Present Illness Details 44 y/o male patient who presents to the walk in clinic with c/o Headaches, body aches, body chills, sinus congestion and pressure since Friday. [facility] Medical History (Updated 05/24/24 @ 14:48 by Marquita Cisse NP) Acute respiratory disease Surgical History Hx of vasectomy Family History Father Hypertension Substance use disorder Mental health disorder Mother Stroke Hypertension Social History Housing: House Alcohol intake: current Comment: Ocassionally Patient Tobacco Use Status: Never used Tobacco e-Cigarette/Vaping Use: Never Used Current occupational status: employed Cognitive needs: No Hearing needs: No Vision needs: Yes Review of Systems Const All systems reviewed & are unremarkable except as noted in HPI and below Physical Exam Vital Signs: Last Vital Signs Temp 100.1 F 05/24/24 14:09 Pulse 106 H 05/24/24 14:09 BP 140/80 H 05/24/24 14:09 Pulse Ox 98 05/24/24 14:09 Oxygen Delivery Method Room Air 05/24/24 14:09 Const General: cooperative and no acute distress; No comfortable Nutritional Appearance: overweight Orientation/consciousness: patient oriented x3 HEENT Head: Yes normocephalic Ears: external ears normal and TM abnormal bulging bilateral and with fluid behind the TM bilateral General nose exam: Normal external nose present and Nasal discharge present Face and sinus: Yes sinuses nontender Mouth: moist mucous membranes Throat: Yes uvula midline Resp Effort & Inspection: normal respiratory effort and able to speak in complete sentences Auscultation: clear to auscultation bilaterally, no crackles, no rales, no rhonchi and no wheezes Cardio Heart sounds: S1 normal heart sound present and S2 normal heart sound present Neuro General: patient oriented x3 Assessment & Plan Assessment & Plan (1) Acute respiratory disease: Code(s): J06.9 - Acute upper respiratory infection, unspecified Plan: OTC cold/flu remedies Acetaminophen for pain and fever relief Ordered SARs Orders: Orders SARS-CoV2/FLU/RSV Today J06.9 - Acute upper respiratory infection, unspecified Medications: New acetaminophen 1,000 mg (2 x 500 mg) PO Q6H PRN 30 caps 0RF pain J06.9 - Acute upper respiratory infection, unspecified pseudoephedrine HCl ER (Sudafed 12 Hour) 120 mg PO Q12H 30 tabs 0RF J06.9 - Acute upper respiratory infection, unspecified benzonatate 200 mg (2 x 100 mg) PO BID 60 caps 0RF J06.9 - Acute upper respiratory infection, unspecified Coding Level of Care Code Est Pt Level 4 (09328) Diagnoses Acute respiratory disease J06.9 Time Spent (min) 20
[2024-05-24 14:09] VITALS: BP 140/80; PULSE 106; TEMP 37.8; O2SAT 98
== END 2024-05-24 15:06 | disposition home or self-care (01) ==
PROVIDERS: Visit Provider Nurse Practitioner Family
DX: J06.9 Acute upper respiratory infection, unspecified (principal)

== ENCOUNTER 2024-06-23 07:32 | Outpatient (REF) | payer OTHER, SELFPAY ==
[2024-06-23 17:53] LABS: MANUAL DIFF FLAG NO
[2024-06-23 18:01] LABS: Basophils Percent Auto 0.7 % (0-2); Eosinophils Absolute Auto 0.1 X10*3/uL (0.0-0.4); Eosinophils Percent Auto 1.3 % (0-4); Hemoglobin 14.3 g/dl (14.0-18.0); Imm Gran Abs Auto 0.01 X10*3/uL (0.00-0.03); Imm Gran Pct Auto 0.2 % (0.0-0.4); Lymphocytes Percent Auto 36.2 % (20-40); Mean Corpuscular Hemoglobin 30.2 pg (27.0-33.0); Mean Corpuscular Volume 88.8 fL (80.0-98.0); Monocytes Absolute Auto 0.5 X10*3/uL (0.1-1.2); Monocytes Percent Auto 8.2 % (2-11); Neutrophils Absolute Auto 2.9 x10*3/uL (2.0-8.3); Neutrophils Percent Auto 53.4 % (45-73); Platelet Count 209 X10*3/uL (160-400); Red Blood Count 4.73 X10*6/uL (4.60-5.80); Red Cell Distribution Width 12.2 % (11.0-16.0); White Blood Count 5.5 X10*3/uL (4.8-10.8)
[2024-06-23 18:11] LABS: Estimated Average Glucose 111 mg/dL; Hemoglobin A1C 139.2084 umol/L; Hemoglobin A1c % 5.5 % (<6.0); Total Hemoglobin (HGBA1C) 3832.3211 umol/L
[2024-06-23 18:25] LABS: Alanine Aminotransferase 30 U/L (0-40); Albumin Level 4.2 g/dL (3.5-5.0); Alkaline Phosphatase 52 U/L (39-117); Anion Gap 11 (12-20); Aspartate Amino Transferase 26 U/L (5-37); Bilirubin Total 0.8 mg/dL (0.0-1.0); Blood Urea Nitrogen 9 mg/dL (9-16); Calcium 9.1 mg/dL (8.4-10.2); Carbon Dioxide 27 mmol/L (22-29); Chloride 106 mmol/L (96-108); Cholesterol 211 mg/dL (<200); Estimated Glomerular Filt Rate > 60; Glucose Random 81 mg/dL (60-115); HDL Cholesterol 54 mg/dL (>40); Iron 167 mcg/dL (45-160); LDL Cholesterol Calculated 145 mg/dL (<100); Percent Iron Saturation 59 % (15-50); Potassium 4.3 mmol/L (3.3-5.1); Sodium 140 mmol/L (135-145); Total Iron Binding Capacity 281 mcg/dL (228-428); Total Protein 6.7 g/dL (6.5-8.0); Triglycerides 61 mg/dL (<150); Unsaturated Iron Binding 114 ug/dL
[2024-06-23 18:33] LABS: Ferritin 224 ng/mL (20-250); TSH reflex Free T4 1.75 uIU/mL (0.32-4.0)
[2024-06-23 18:50] LABS: Folate 7.4 ng/mL (> or = 4.0); Vitamin B12 395 pg/mL (200-900)
[2024-06-23 20:54] LABS: Reflex LDLD? No
[2024-06-27 14:29] LABS: Vitamin D 25-OH, D2 <4 ng/mL; Vitamin D 25-OH, D3 17 ng/mL; Vitamin D 25-OH, Total 17 ng/mL (30-100)
[2024-06-27 15:59] LABS: Vitamin B6 13.7 ng/mL (2.1-21.7)
[2024-07-01 18:13] LABS: Vitamin B1 9 nmol/L (8-30)
== END 2024-06-23 07:33 | disposition home or self-care (01) ==
LOC: HO.HKASLDS 07:32
PROVIDERS: Visit Provider Nurse Practitioner Family
DX: Z00.00 Encounter for general adult medical examination without abnormal findings (principal); N50.82 Scrotal pain; N50.819 Testicular pain, unspecified; G47.33 Obstructive sleep apnea (adult) (pediatric); R20.2 Paresthesia of skin; R51.9 Headache, unspecified; G89.29 Other chronic pain; G47.61 Periodic limb movement disorder; R53.83 Other fatigue; Z13.1 Encounter for screening for diabetes mellitus
CPT/HCPCS: 36415; 80053; 80061; 82306; 82607; 82728; 82746; 83036; 83540; 84207; 84425; 84443; 85025; 96127

== ENCOUNTER 2024-06-23 07:32 | Outpatient (AMB) | payer OTHER, SELFPAY ==
--- NOTE | 2024-06-23 07:40 | MHC.OFFVIS ---
Vital Signs 06/23/24 07:41 Height 5 ft 5 in Weight 179 lb 8 oz BMI 29.9 BP 126/76 Blood Pressure Location Lt brachial Position Sitting Pulse 56 Pulse Source Pulse Oximeter Pulse Oximetry (%) 98 Oxygen Delivery Method Room Air Intake Visit Reasons: 3 mo follow up Intake Note: Patient presents 3 month follow up for chronic headaches. Allergies escitalopram Adverse Reaction (Unknown, Verified 06/23/24 07:44) stomach upset milk Adverse Reaction (Unknown, Uncoded 05/24/24 14:09) stomach upset Medication List - Last Reconciled 06/23/24 by APPLE Gee acetaminophen 1,000 mg (2 x 500 mg) PO Q6H PRN benzonatate 200 mg (2 x 100 mg) PO BID pseudoephedrine HCl ER (Sudafed 12 Hour) 120 mg PO Q12H sumatriptan succinate 50 - 100 mg orally at onset of headache, may repeat in 2 hrs PRN; max 2 tabs per day or 4 tabs/week (may take with Ibuprofen) 30 days HPI Comments Details: 43-yr-old male presents for visit for severe MERCEDEZ and migraine. Pt had an interval norovirus infection- which lasted 10-11 days- but is now feeling better. He continues to use his CPAP regularly. He continues to have dry mouth from use. He has not tried Xylimelts yet. His humidification level is set to manual 3- as on auto it was running out of water and causing a metallic taste. Pt reports his migraines are a bit better. Notes he is overall eating less- ie not eating just because he is bored or it is dinner time. Trying to eat healthier foods- eating more organic. He states adele left foot numbness is less often- but occurs occasionally. He has not had labs done yet. 03/25/24 HPI: 11/11/2023 HST showed severe obstructive sleep apnea and nocturnal hypoxemia. AHI 57.4/hour, O2 sandy 76%, SpO2 under 90% for 56 minutes (9.8% of study time), SpO2 under 88% for 15 minutes of study time, average heart rate 62 beats per minute, heart rate range 38-103 beats per minute, snoring present for 7.6% of study time. Patient then underwent follow-up in-lab PAP titration study on 12/23/2023, which showed best optimization breathing and oxygenation and CPAP 13 cm H2O. During the study, patient had a periodic limb movement of sleep (PLMS) index of 17.7/hour and a PLMS arousal index of 7.7/hour. Since, patient has received a new CPAP machine. Overall he feels that this machine is working better. He has asked for a larger facemask, as he has been experiencing dry mouth when using his CPAP. He thinks this is due to now using a mouth guard that his dentist prescribed, which is preventing him from fully closing his mouth while he sleeps. He states he has never had alternate his CPAP use before. He states his headaches have been well controlled. He did purchase a pair of FL-41 blue light blocking glasses, which he applies at onset of photophobia/headache, in his very helpful. He has not needed to use p.r.n. sumatriptan. He denies typical restlessness, states he is usually a pretty calm person. Generally he does like to sleep with a lot of blankets on, any notes that during the sleep study he had just thin blink on. He denies frequent nocturnal leg cramps. He has been noticing left foot itchiness at rest. He states the skin of the foot looks clear. He tried OTC antifungal tx, but this did not help. He may have some left knee pain at times. 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 08/27/2023, Initial HPI: Patient reports that he has a history of sleep apnea and has used CPAP for many years. He initially underwent a sleep study, as he was having terrible headaches. He is using his CPAP nightly, which helps with his snoring, sleep, and headaches. However, he states his respiratory company told him that his machine has reached the end of his life. He also notes that he is need of new PAP supplies as well. Sleep questionnaire: Have you ever been diagnosed with a sleep disorder? yes Have you ever had a sleep study in the past? yes Have you ever been treated for a sleep disorder? yes Do you take medications for a sleep disorder? no Do you have difficulty initiating sleep? yes Do you have difficulty maintaining sleep? no Do you wake up tired? yes Do you have daytime tiredness or fatigue? yes Do you easily fall asleep when inactive? yes Do you snore? yes Do you wake up gasping at night? no Do you have episodes of apneas? yes If yes, are they witnessed? yes Do you have episodes of nocturnal chest pain or dyspnea? no Do you have bruxism? Yes. If yes, do you wear a mouth guard when sleeping? just recently Do you have headaches upon awakening? yes. holocranial misery a/w photophobia, dizziness and nausea- when more severe, GI upset. Do you wake up with dry mouth or throat? yes- constantly thirsty. drinks water, but all some liqid IV Do you have GERD? in the past- improved w/ diet changes. Do you have nocturia? no Do you have nocturnal leg cramps? no Do you have symptoms of restless legs? Yes, and has Urge to move, Restlessness. Just occasionally. Starts at bedtime. Do you act out your dreams? no Do you have sleep paralysis? no Do you have drop attacks? no Do you ever have hypnogenic hallucinations? no Hypersomnolence questionnaire: Have you ever had episodes of sudden weakness? no Have you ever had episodes of sudden weakness associated with strong emotions? no Sleep hygiene questionnaire: What is your usual sleep routine? Usual bedtime is at 10:30 pm; Usual wake-up time is at 5:30am. Do you take naps? cannot nap- d/t busy lifestyle Is your sleep environment cool, dark, and quiet? not as quiet as he would like- his uses a fan. Do you exercise? very active. occasional exercises at home. no structured exercise at this time. Do you take caffeine or other stimulants? 1 cup of coffee Do you use electronics in bed? Some phone use. 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 COUNTS INCLUDE 234 BEDS AT THE [facility] Medical History Acute respiratory disease Surgical History Hx of vasectomy Family History Father Hypertension Substance use disorder Mental health disorder Mother Stroke Hypertension Social History Housing: House Alcohol intake: current Comment: Ocassionally Patient Tobacco Use Status: Never used Tobacco e-Cigarette/Vaping Use: Never Used Current occupational status: employed Cognitive needs: No Hearing needs: No Vision needs: Yes Physical Exam Vital Signs: Last Vital Signs Pulse 56 06/23/24 07:41 BP 126/76 06/23/24 07:41 Pulse Ox 98 06/23/24 07:41 Oxygen Delivery Method Room Air 06/23/24 07:41 BMI result Body Mass Index 29.9 Const General: cooperative and no acute distress Orientation/consciousness: patient oriented x3 Resp Effort & Inspection: normal respiratory effort and able to speak in complete sentences Cardio Rate: regular rate Rhythm: regular rhythm Neuro General: patient oriented x3 Cognition (Neuro): normal cognition Psych Appearance: grossly normal Mental Status: mental status grossly normal Speech and movement: Normal speech and movement present Affect: normal affect Attitude: cooperative Results Reviewed Results Reviewed: Assessment & Plan Assessment & Plan (1) Severe obstructive sleep apnea: Code(s): G47.33 - Obstructive sleep apnea (adult) (pediatric) Category: Medical (2) Paresthesia of left foot: Code(s): R20.2 - Paresthesia of skin Category: Medical (3) Chronic headache: Code(s): R51.9 - Headache, unspecified; G89.29 - Other chronic pain Category: Medical Qualifiers: Headache type: unspecified Intractability: not intractable Qualified Code(s): R51.9 - Headache, unspecified; G89.29 - Other chronic pain (4) Periodic limb movements of sleep: Code(s): G47.61 - Periodic limb movement disorder Category: Medical Plan For MERCEDEZ: HST and follow-up in-lab PSG with PAP titration: Severe obstructive sleep apnea with nocturnal hypoxemia, with PAP titration study showing optimization of breathing and oxygenation level CPAP 13 cm H2O. In-lab PAP titration study does show PLMS with PLMS arousal index of 7/hour, while patient was on CPAP which was effectively treating his sleep apnea and nocturnal hypoxemia. Adjusted CPAP (via [employer] airview) from 13 cm H2O w/ EPR 3 to 12 cm H2O w/ EPR 3- in hopes this reduces dry mouth. Will request PAP machine check for humidification/heating component- from [employer]. Continue to use CPAP nightly for at least 4 hours. Continue to use mouth guard for dentist. Trial OTC XyliMelts 1-2 tabs applied to a gun p.r.n. to prevent dry mouth Clean CPAP machine and supplies routinely. Change CPAP supplies routinely. Use distilled water in CPAP water reservoir. Pt to contact us or respiratory company with any questions or concerns. For left foot itchiness without other associated skin symptoms: He check labs today for common etiologies of paresthesias. Possibly this could be related to PLMS, maybe a mild case of RLS as this is only occurring at rest. Discussed that if lab work was normal, we could consider trying low-dose gabapentin, however patient is hesitant to try new medications. Thus, future considerations include podiatry referral, LLE imaging, and/or EMG/NCS Information shared on nonpharmacological treatments of PLMS/RLS. For migraine: Continue optimizing lifestyle factors- regualr excercise, sleep,a nd eating a well-balanced diet. Continue to use FL-41 blue light blocking glasses p.r.n. Continue sumatriptan p.r.n. Follow-up upon review of above and in clinic in 6 months or sooner. Coding Level of Care Code Est Pt Level 4 (54327) Diagnoses Severe obstructive sleep apnea G47.33 Paresthesia of left foot R20.2 Chronic nonintractable headache, unspecified headache type R51.9; G89.29 Headache type: unspecified Intractability: not intractable Periodic limb movements of sleep G47.61
[2024-06-23 07:41] VITALS: BP 126/76; PULSE 56; O2SAT 98; BMI 29.9
== END 2024-06-23 08:24 | disposition home or self-care (01) ==
LOC: HO.HSMS 07:33
PROVIDERS: Visit Provider Nurse Practitioner Family
DX: G47.33 Obstructive sleep apnea (adult) (pediatric) (principal); R20.2 Paresthesia of skin; R51.9 Headache, unspecified; G89.29 Other chronic pain; G47.61 Periodic limb movement disorder
CPT/HCPCS: 99214

== ENCOUNTER 2024-06-23 14:55 | Outpatient (AMB) | payer OTHER, SELFPAY ==
[2024-06-23 15:04] VITALS: BP 122/84; PULSE 77; RESP 16; TEMP 36.8; O2SAT 98; BMI 30.4
--- NOTE | 2024-06-23 15:04 | A.OFFPC_ITS ---
Vital Signs 06/23/24 15:04 Height 5 ft 5 in Weight 183 lb BMI 30.4 BP 122/84 Blood Pressure Location Lt brachial Position Sitting Respiration 16 Pulse 77 Pulse Source Pulse Oximeter Temp 98.2 F Temp Source Oral Pulse Oximetry (%) 98 Oxygen Delivery Method Room Air Intake Visit Reasons: [facility] from [facility] Allergies escitalopram Adverse Reaction (Unknown, Verified 06/23/24 15:12) stomach upset milk Adverse Reaction (Unknown, Uncoded 06/23/24 15:12) stomach upset Medication List - Last Reconciled 06/23/24 by APPLE Calle- acetaminophen 1,000 mg (2 x 500 mg) PO Q6H PRN sumatriptan succinate 50 - 100 mg orally at onset of headache, may repeat in 2 hrs PRN; max 2 tabs per day or 4 tabs/week (may take with Ibuprofen) 30 days Tobacco use date assessed: 06/23/24 Dental Screening Dental Screen Date: 06/23/24 Did you have a dental visit in the last 12 months?: Yes Did you have a dental problem in the last 6 months where you did not have access to dental care?: No Was dental information given to patient?: Patient has dentist HPI [facility] from [facility] HPI Details History of Present Illness The patient is a 44-year-old male presenting with testicular discomfort. The issue began after a vasectomy in April 2023. The discomfort is intermittent and occurs with identifiable triggers, such as during sexual activity or while driving. The patient denies any symptoms like fever, chills, hematuria, or hematospermia. No blood was noted in the stool, and the patient denies any gastrointestinal or respiratory complaints. There are no prior studies performed, like an ultrasound, for this discomfort. The patient also reports ongoing lower back pain, which may relate to nerve involvement. Health Maintenance Social History Review of Systems - Genitourinary: Reports testicular disc omfort. Denies hematuria and hematospermia. - Constitutional: Denies fevers or chill s. - Respiratory: Denies shortness of breat h. - Cardiovascular: Denies chest pain. - Gastrointestinal: Denies abdominal israel n, blood in stool, constipation, and diarrhea. Physical Exam General: Cooperative, healthy appearing, comfortable, no acute distress and well developed Orientation: Patient oriented x3 Limitations: No limitations Head: Normal to inspection Ears: Hearing grossly normal bilaterally Nose: Normal external nose present Face and sinus: Normal facial exam Eyes: Appearance normal, both eyes and all related structures Neck: Normal visual inspection and Yes full ROM Respiratory: Normal respiratory effort and able to speak in complete sentences. Clear to auscultation bilaterally Cardiovascular: Regular rate and rhythm. Normal S1 and S2 GI: Normal to inspection. Soft to palpation and nontender Skin: No rashes or lesions noted Neuro: Patient oriented x3 Extremities: Normal to inspection, slight discomfort with palpation of testicles, especially right and some on the left. Question more nerve involvement. Results Plan I plan to obtain a scrotal ultrasound to evaluate the testicular discomfort reported by the patient, as no prior imaging studies have been done. The ultrasound will provide insight into any potential structural or nerve-related issues contributing to the discomfort. Following the results, further management strategies will be developed. Analgesics may be considered to manage the discomfort in the short term. Monitoring for changes in symptoms will be essential, and referral to a specialist may be necessary depending on the ultrasound findings. Discussion Notes The patient and I discussed the current presentation of his testicular discomfort and the lack of previous imaging evaluation. I explained the importance of obtaining an ultrasound as the next step to investigate any underlying causes. I informed the patient of the non-invasive nature of ultrasound and its role in providing detailed information about the scrotum. I also discussed potential outcomes and how further management will be directed based on these findings. The patient expressed understanding and agreed to the plan outlined, including the possibility of requiring further specialist consultation if indicated by ultrasound results. Patient Instructions - Schedule an appointment for a scrotal ultrasound. - Monitor for any new symptoms or change s in the testicular discomfort. - Seek medical attention if discomfort s ignificantly worsens or if new symptoms develop. [facility] Medical History Acute respiratory disease Surgical History Hx of vasectomy Family History Father Hypertension Substance use disorder Mental health disorder Mother Stroke Hypertension Social History Housing: House Alcohol intake: current Comment: Ocassionally Patient Tobacco Use Status: Never used Tobacco e-Cigarette/Vaping Use: Never Used Current occupational status: employed Cognitive needs: No Hearing needs: No Vision needs: Yes Questionnaire PHQ-9 Over the last 2 weeks, how often have you been bothered by any of the following problems? 1. Little interest or pleasure in doing things: not at all 2. Feeling down, depressed, or hopeless: several days 3. Trouble falling or staying asleep, or sleeping too much: nearly every day 4. Feeling tired or having little energy: nearly every day 5. Poor appetite or overeating: not at all 6. Feeling bad about yourself - or that you are a failure or have let yourself or your family down: not at all 7. Trouble concentrating on things, such as reading the newspaper or watching television: not at all 8. Moving or speaking so slowly that other people could have noticed. Or the opposite - being so fidgety or restless that you have been moving around a lot more than usual: not at all 9. Thoughts that you would be better off or of hurting yourself in some way: not at all Total score: 7 Depression Screening Interpretation: Negative Depression Screening Done: Yes 18777 - PHQ-9 Billing: Yes Source: Developed by Drs. Sal Chahal, Courtney Romero, Sulaiman Ugarte and colleagues, with an educational chalo from [employer]. Thrive Questionnaire Date Thrive assessed: 06/20/24 I am a: Patient What is your living situation today?: I have a steady place to live Within the past 12 months, did the food you bought not last and you didn't have the money to get more?: Sometimes True Within the past 12 months, did you worry whether your food would run out before you got money to buy more?: Sometimes True Do you have trouble paying for medicines?: Yes Do you have trouble getting transportation to medical appointments?: No Do you have trouble paying your heating and electricity bill?: Yes Do you have trouble taking care of your child, family member or friend?: No Do you have trouble with day-to-day activities such as bathing, preparing meals, shopping, managing finances, etc.?: Yes Are you currently unemployed and looking for a job?: No Are you interested in more education?: No Please select the resources that you would like help with: None Currently or been in a relationship where the following occur: No concerns reported THRIVE Score: 3 AUDIT C Alcohol Use Questionnaire (AUDIT-C) 1. How often do you have a drink containing alcohol?: Monthly or less 2. How many drinks containing alcohol do you have on a typical day when you are drinking?: 1 or 2 3. How often do you have six or more drinks on one occasion?: Never Total Score: 1 Score Reviewed/Action Taken: Yes DARA-7 AMB Questionnaire DARA-7 Date DARA - 7 assessed: 05/05/23 Feeling nervous, anxious, or on edge: 2 = More than half the days Not being able to stop or control worryin = Several days Worrying too much about different things: 1 = Several days Trouble relaxin = Nearly every day Being so restless that it is hard to sit still: 1 = Several days Becoming easily annoyed or irritable: 2 = More than half the days Feeling afraid as if something awful might happen: 1 = Several days Total DARA-7 score (0-4 normal; 5-9 mild; 10-14 moderate; 15-21 severe): 11 Source: Developed by Drs. Sal Chahal, Courtney Romero, Sulaiman Ugarte and colleagues, with an educational chalo from [employer]. DARA-7 Assessment Billing DARA-7 Assessment Tool: DARA-7 Assessment 77271 (denies any si or hi) Physical exam (Primary Care) Vital Signs: Last Vital Signs Temp 98.2 F 06/23/24 15:04 Pulse 77 06/23/24 15:04 Resp 16 06/23/24 15:04 BP 122/84 06/23/24 15:04 Pulse Ox 98 06/23/24 15:04 Oxygen Delivery Method Room Air 06/23/24 15:04 BMI result Body Mass Index 30.4 Tobacco/Smoking Status: Tobacco use Status Tobacco use date assessed 06/23/24 06/23/24 15:15 Patient Tobacco Use Status Never used Tobacco 06/23/24 15:06 e-Cigarette/Vaping Use Never Used 06/23/24 15:06 PHQ-9: PHQ-9 Score PHQ-9: Total score 7 06/23/24 15:06 Depression Screening Interpretation: Negative Thrive Assessment: Date of Thrive Assessment Date Thrive assessed 06/20/24 06/23/24 15:06 Currently or been in a relationship where the following occur: No concerns reported Coding Level of Care Code Est Pt Prev Care 40-64y(46614) Diagnoses Physical exam Z00.00 Scrotal pain N50.82 Testicular pain N50.819 Additional Codes PHQ-9 - 61035 - PHQ-9 Billing: Yes ([id number]) DARA-7 Assessment Billing - DARA-7 Assessment Tool: DARA-7 Assessment 85097 ([id number]) Assessment & Plan Assessment & Plan (1) Physical exam: Code(s): Z00.00 - Encounter for general adult medical examination without abnormal findings Category: Medical (2) Scrotal pain: Code(s): N50.82 - Scrotal pain Category: Medical (3) Testicular pain: Code(s): N50.819 - Testicular pain, unspecified Category: Medical Plan . Orders: Orders US scrotum Today N50.819 - Testicular pain, unspecified, N50.82 - Scrotal pain
== END 2024-06-23 15:51 | disposition home or self-care (01) ==
LOC: HO.HMCC 14:56
PROVIDERS: Visit Provider Nurse Practitioner Family
DX: Z00.00 Encounter for general adult medical examination without abnormal findings (principal); N50.82 Scrotal pain; N50.819 Testicular pain, unspecified

== ENCOUNTER 2024-07-19 11:14 | Outpatient (REF) | payer OTHER, SELFPAY ==
--- NOTE | ~2024-07-19 | US_ITS ---
EXAMINATION: US SCROTUM HISTORY: N50.82 - Scrotal pain. COMPARISON: There are no prior studies for comparison. FINDINGS: Real-time grayscale ultrasound imaging of the scrotum was performed. RIGHT TESTICLE: The right testis measures 4.3 x 2.2 x 3.2 cm and demonstrates normal homogeneous echotexture. No masses are seen. The right testis demonstrates normal color Doppler flow. RIGHT EPIDIDYMIS: Normal in size, shape, and vascularity. There are epididymal head cysts measuring up to 4 mm in size. LEFT TESTICLE: The left testis measures 4.5 x 2.2 x 3.1 cm and demonstrates normal homogeneous echotexture. No masses are seen. The left testis demonstrates normal color Doppler flow. LEFT EPIDIDYMIS: Normal in size, shape, and vascularity. There are epididymal head cysts measuring up to 4 mm in size. VARICOCELE: There is a small left varicocele. HYDROCELE: No significant hydrocele is seen. OTHER COMMENTS: None. US/US scrotum IMPRESSION: Small left varicocele. Epididymal head cysts bilaterally measuring up to 4 mm in size. Otherwise unremarkable scrotal ultrasound. Electronically signed by: Sal Patel MD 07/19/2024 11:42 AM EDT
== END 2024-07-19 11:15 | disposition home or self-care (01) ==
LOC: HO.HMGCX 11:14
PROVIDERS: PCP Nurse Practitioner Family; Visit Provider Nurse Practitioner Family
DX: N50.819 Testicular pain, unspecified (principal); N50.82 Scrotal pain
CPT/HCPCS: 76870

== ENCOUNTER → 2024-07-19 11:15 | Outpatient (BNV) | payer OTHER, SELFPAY | PROVIDERS: PCP Nurse Practitioner Family; Visit Provider Radiology Diagnostic Radiology | DX: N50.82 Scrotal pain (principal) | CPT/HCPCS: 76870; 93975 ==

== ENCOUNTER 2024-12-27 08:31 | Outpatient (AMB) | payer OTHER, SELFPAY ==
[2024-12-27 08:44] VITALS: BP 120/80; PULSE 78; O2SAT 96; BMI 30.1
--- NOTE | 2024-12-27 08:44 | A.OFFVIS_ITS ---
Vital Signs 12/27/24 08:44 Height 5 ft 5 in Weight 181 lb BMI 30.1 BP 120/80 Blood Pressure Location Rt brachial Position Sitting Pulse 78 Pulse Source Pulse Oximeter Pulse Oximetry (%) 96 Oxygen Delivery Method Room Air Intake Visit Reasons: 6 mo follow up Intake Note: Patient presents 3 month follow up for chronic headaches. 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 Accompanied by: Self / Same As Patient Allergies escitalopram Adverse Reaction (Unknown, Verified 12/27/24 08:45) stomach upset milk Adverse Reaction (Unknown, Uncoded 06/23/24 15:12) stomach upset Medication List - Last Reconciled 12/27/24 by Tosha Bello, APPLE acetaminophen 1,000 mg (2 x 500 mg) PO Q6H PRN cholecalciferol (vitamin D3) 1,250 mcg PO QWEEK 12 weeks sumatriptan succinate 50 - 100 mg orally at onset of headache, may repeat in 2 hrs PRN; max 2 tabs per day or 4 tabs/week (may take with Ibuprofen) 30 days HPI Comments Details: 44-yr-old male presents for visit for severe MERCEDEZ and migraine. Interval labs were unremarkable, other than a mild low vitamin-D level. Patient was started on vitamin-D supplement. He reports he is struggling to cover the [id number] costs with his CPAP, especially as he received a large bill due to his insurance deductible. He continues to use his CPAP regularly. He reports his migraines are a bit better. He is trying to make sure he is eating well, decreased his alcohol intake (which was just social). He generally avoids repetitive for recurrent activities noting strong family history of alcohol and substance abuse. 90-day Compliance Report [facility]: [facility] Compliance report 09/28/2024 - 12/26/2024 Overall PAP usage: 100% PAP usage >= 4 hours: 100% Average usage on days used: 7 hours 41 minutes AirSense 10 AutoSet Serial number [id number] Mode CPAP 12 cmH2O with EPR 3 Leaks: * Median: 0.7 sandy per minute * Maximum: 21.3 L/min Residual events per hour: * AHI: 3.1 per hour 06/23/24, HPI: Pt had an interval norovirus infection- which lasted 10-11 days- but is now feeling better. He continues to use his CPAP regularly. He continues to have dry mouth from use. He has not tried Xylimelts yet. His humidification level is set to manual 3- as on auto it was running out of water and causing a metallic taste. Pt reports his migraines are a bit better. Notes he is overall eating less- ie not eating just because he is bored or it is dinner time. Trying to eat healthier foods- eating more organic. He states the left foot numbness is less often- but occurs occasionally. He has not had labs done yet. 03/25/24 HPI: 11/11/2023 HST showed severe obstructive sleep apnea and nocturnal hypoxemia. AHI 57.4/hour, O2 sandy 76%, SpO2 under 90% for 56 minutes (9.8% of study time), SpO2 under 88% for 15 minutes of study time, average heart rate 62 beats per minute, heart rate range 38-103 beats per minute, snoring present for 7.6% of study time. Patient then underwent follow-up in-lab PAP titration study on 12/23/2023, which showed best optimization breathing and oxygenation and CPAP 13 cm H2O. During the study, patient had a periodic limb movement of sleep (PLMS) index of 17.7/hour and a PLMS arousal index of 7.7/hour. Since, patient has received a new CPAP machine. Overall he feels that this machine is working better. He has asked for a larger facemask, as he has been experiencing dry mouth when using his CPAP. He thinks this is due to now using a mouth guard that his dentist prescribed, which is preventing him from fully closing his mouth while he sleeps. He states he has never had alternate his CPAP use before. He states his headaches have been well controlled. He did purchase a pair of FL-41 blue light blocking glasses, which he applies at onset of photophobia/headache, in his very helpful. He has not needed to use p.r.n. sumatriptan. He denies typical restlessness, states he is usually a pretty calm person. Generally he does like to sleep with a lot of blankets on, any notes that during the sleep study he had just thin blink on. He denies frequent nocturnal leg cramps. He has been noticing left foot itchiness at rest. He states the skin of the foot looks clear. He tried OTC antifungal tx, but this did not help. He may have some left knee pain at times. 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 08/27/2023, Initial HPI: Patient reports that he has a history of sleep apnea and has used CPAP for many years. He initially underwent a sleep study, as he was having terrible headaches. He is using his CPAP nightly, which helps with his snoring, sleep, and headaches. However, he states his respiratory company told him that his machine has reached the end of his life. He also notes that he is need of new PAP supplies as well. Sleep questionnaire: Have you ever been diagnosed with a sleep disorder? yes Have you ever had a sleep study in the past? yes Have you ever been treated for a sleep disorder? yes Do you take medications for a sleep disorder? no Do you have difficulty initiating sleep? yes Do you have difficulty maintaining sleep? no Do you wake up tired? yes Do you have daytime tiredness or fatigue? yes Do you easily fall asleep when inactive? yes Do you snore? yes Do you wake up gasping at night? no Do you have episodes of apneas? yes If yes, are they witnessed? yes Do you have episodes of nocturnal chest pain or dyspnea? no Do you have bruxism? Yes. If yes, do you wear a mouth guard when sleeping? just recently Do you have headaches upon awakening? yes. holocranial misery a/w photophobia, dizziness and nausea- when more severe, GI upset. Do you wake up with dry mouth or throat? yes- constantly thirsty. drinks water, but all some liqid IV Do you have GERD? in the past- improved w/ diet changes. Do you have nocturia? no Do you have nocturnal leg cramps? no Do you have symptoms of restless legs? Yes, and has Urge to move, Restlessness. Just occasionally. Starts at bedtime. Do you act out your dreams? no Do you have sleep paralysis? no Do you have drop attacks? no Do you ever have hypnogenic hallucinations? no Hypersomnolence questionnaire: Have you ever had episodes of sudden weakness? no Have you ever had episodes of sudden weakness associated with strong emotions? no Sleep hygiene questionnaire: What is your usual sleep routine? Usual bedtime is at 10:30 pm; Usual wake-up time is at 5:30am. Do you take naps? cannot nap- d/t busy lifestyle Is your sleep environment cool, dark, and quiet? not as quiet as he would like- his uses a fan. Do you exercise? very active. occasional exercises at home. no structured exercise at this time. Do you take caffeine or other stimulants? 1 cup of coffee Do you use electronics in bed? Some phone use. What is your work schedule? 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 PFSH Medical History Acute respiratory disease Surgical History Hx of vasectomy Family History Father Hypertension Substance use disorder Mental health disorder Mother Stroke Hypertension Social History Housing: House Alcohol intake: current Comment: Ocassionally Patient Tobacco Use Status: Never used Tobacco e-Cigarette/Vaping Use: Never Used Current occupational status: employed Cognitive needs: No Hearing needs: No Vision needs: Yes Physical Exam Vital Signs: Last Vital Signs Pulse 78 12/27/24 08:44 BP 120/80 12/27/24 08:44 Pulse Ox 96 12/27/24 08:44 Oxygen Delivery Method Room Air 12/27/24 08:44 BMI result Body Mass Index 30.1 Const General: cooperative and no acute distress Orientation/consciousness: patient oriented x3 Resp Effort & Inspection: normal respiratory effort and able to speak in complete sentences Cardio Rate: regular rate Rhythm: regular rhythm Neuro General: patient oriented x3 Cognition (Neuro): normal cognition Psych Appearance: grossly normal Mental Status: mental status grossly normal Speech and movement: Normal speech and movement present Affect: normal affect Attitude: cooperative Assessment & Plan Assessment & Plan (1) Severe obstructive sleep apnea: Code(s): G47.33 - Obstructive sleep apnea (adult) (pediatric) Category: Medical (2) Periodic limb movements of sleep: Code(s): G47.61 - Periodic limb movement disorder Category: Medical (3) Chronic headache: Code(s): R51.9 - Headache, unspecified; G89.29 - Other chronic pain Category: Medical Qualifiers: Headache type: unspecified Intractability: not intractable Qualified Code(s): R51.9 - Headache, unspecified; G89.29 - Other chronic pain (4) Paresthesia of left foot: Code(s): R20.2 - Paresthesia of skin Category: Medical Plan For MERCEDEZ: HST and follow-up in-lab PSG with PAP titration: Severe obstructive sleep apnea with nocturnal hypoxemia, with PAP titration study showing optimization of breathing and oxygenation level CPAP 13 cm H2O. In-lab PAP titration study does show PLMS with PLMS arousal index of 7/hour, while patient was on CPAP which was effectively treating his sleep apnea and nocturnal hypoxemia. Continue CPAP 12 cm H2O w/ EPR nightly for at least 4 hours. Continue to use mouth guard from dentist. May use OTC XyliMelts 1-2 tabs applied to a gun p.r.n. to prevent dry mouth Clean CPAP machine and supplies routinely. Change CPAP supplies routinely. Use distilled water in CPAP water reservoir. Discussed strategies to reduce cost for related to CPAP equipment and medical expenses. Pt to contact us or [facility] with any questions or concerns regarding PAP therapy For left foot itchiness without other associated skin symptoms: Lab results were unremarkable, other than a mild vitamin-D deficiency. Continue vitamin-D supplement. Check vitamin-D level at follow-up. If symptoms worsen, consider podiatry referral, LLE imaging, and/or EMG/NCS Information previously shared on nonpharmacological treatments of PLMS/RLS. For migraine: Continue optimizing lifestyle factors- regular exercise, sleep, and eating a well-balanced diet. Continue to use FL-41 blue light blocking glasses p.r.n. Continue sumatriptan p.r.n. Follow-up upon review of above and in clinic in 6 months or sooner. Coding Level of Care Code Est Pt Level 4 (48492) Diagnoses Severe obstructive sleep apnea G47.33 Periodic limb movements of sleep G47.61 Chronic nonintractable headache, unspecified headache type R51.9; G89.29 Headache type: unspecified Intractability: not intractable Paresthesia of left foot R20.2
== END 2024-12-27 09:37 | disposition home or self-care (01) ==
LOC: HO.HSMS 08:32
PROVIDERS: Visit Provider Nurse Practitioner Family
DX: G47.33 Obstructive sleep apnea (adult) (pediatric) (principal); G47.61 Periodic limb movement disorder; R51.9 Headache, unspecified; G89.29 Other chronic pain; R20.2 Paresthesia of skin
CPT/HCPCS: 99214